=== PATIENT | male | born 1965 | race Caucasian/White ===

== ENCOUNTER 2017-11-16 05:22 | Day surgery (SDC) | payer OTHER ==
[2017-11-10 14:09] LABS: BASOPHILS # (AUTO) 0.1 X10'3 (0-0.2); BASOPHILS % (AUTO) 1.2 % (0-1); EOSINOPHILS # (AUTO) 0.4 X10'3 (0-0.9); LYMPHOCYTES # (AUTO) 2.6 X10'3 (1.1-4.8); MEAN CORPUSCULAR HEMOGLOBIN 32.7 PG (27.0-31.0); MEAN CORPUSCULAR HGB CONC 34.4 % (33.0-36.5); MEAN PLATELET VOLUME 8.2 FL (7.4-10.4); MONOCYTES # (AUTO) 0.7 X10'3 (0-0.9); MONOCYTES % (AUTO) 6.6 % (2-12); NEUTROPHILS % (AUTO) 64.2 % (42-75); PRE OP HEMATOCRIT 54.6 % (42.0-52.0); PRE OP PLATELET COUNT 266 X10'3 (140-440); RED BLOOD COUNT 5.75 X10'6 (4.70-6.10)
[2017-11-10 14:10] LABS: PRE OP HEMOGLOBIN 18.8 g/dL (14.0-17.9)
[2017-11-10 14:24] LABS: ALBUMIN 3.8 G/DL (3.4-5.0); ALBUMIN/GLOBULIN RATIO 1.1 (1.1-1.5); ALKALINE PHOSPHATASE 76 IU/L (46-116); BLOOD UREA NITROGEN 11 MG/DL (7-18); BUN/CREATININE RATIO 12.2 (5.4-32.0); CHLORIDE 102 MMOL/L (99-107); PRE OP ALT 49 U/L (30-65); PRE OP ANION GAP 8 (8-16); PRE OP AST 23 U/L (10-37); PRE OP BILIRUB, TOTAL 0.5 MG/DL (0.0-1.0); PRE OP GLUCOSE 93 MG/DL (70-104); PRE OP POTASSIUM 3.9 MMOL/L (3.4-5.1); PRE OP SODIUM 138 MMOL/L (135-145); TOTAL CARBON DIOXIDE 27.6 MMOL/L (24-32); TOTAL PROTEIN 7.2 G/DL (6.4-8.2); eGFR 89 ML/MIN
[2017-11-16] VITALS (8 sets, daily range): BP systolic 132–149; BP diastolic 86–108
[~2017-11-16] VITALS: Ht 177.8 cm; Wt 132.0 kg
[~2017-11-16 05:22] MED LIST: LISI-604 PO
[2017-11-16] MEDS ORDERED: famotidine 20mg tablet PO ONE (06:04)
[2017-11-16] MEDS ORDERED: Cefazolin 2GM/50ML dext iso,osmotic IVPB IV ONE (06:05)
[2017-11-16] MEDS ORDERED: ringers solution, lacted 1,000 ML IV SCH ×2 (06:05→08:28)
[2017-11-16] MEDS ORDERED: LIDOcaine 1% (10mg/ml) 2ml vial ONE (06:19)
[2017-11-16] MEDS ORDERED: albuterol 2.5 MG/3 ML nebule NEB ONE (06:30)
[2017-11-16] MEDS ORDERED: ketorolac trometh. 30mg/ml inj. ONE ×2 (06:50→08:34)
[2017-11-16] MEDS ORDERED: LIDOcaine 1% 30ml preserv. free vial ONE (06:50)
[2017-11-16] MEDS ORDERED: LIDOcaine 1%/PF 5ML 10 MG/ML VIAL ONE (06:50)
[2017-11-16] MEDS ORDERED: ROPIVAcaine 0.5% (5mg/ml) 30ml vial ONE (06:50)
[2017-11-16] MEDS ORDERED: BUPIVAcaine/PF 2.5mg/ml (0.25%) 10ml vial ONE (06:51)
[2017-11-16] MEDS ORDERED: sevoflurane 250ml liquid IH ONE (07:40)
[2017-11-16] MEDS ORDERED: fentaNYL/PF 50MCG/1 ML 2ML syringe ONE ×2 (07:50→08:00)
[2017-11-16] MEDS ORDERED: midazolam 2 mg/2 ml injection ONE (07:51)
[2017-11-16] MEDS ORDERED: LIDOcaine 2% (20mg/ml) 5ml vial ONE (07:52)
[2017-11-16] MEDS ORDERED: propofol inj 20 ML IV ONE ×2 (07:52→08:34)
[2017-11-16] MEDS ORDERED: proCHLORperazine 10 MG/2 ml inj IV PRN (08:30)
[2017-11-16] MEDS ORDERED: morphine 4 MG/ML inj SYRINge IV PRN ×2 (08:30)
[2017-11-16] MEDS ORDERED: meperidine/PF 25mg/ml syringe IV PRN ×3 (08:30)
[2017-11-16] MEDS ORDERED: ondansetron/PF 4mg/2ml inj IV PRN (08:30)
[2017-11-16] MEDS ORDERED: HYDROcodone/acetaminophen 10/325mg tab PO PRN (08:40)
[2017-11-16] MEDS ORDERED: acetaminophen 1,000mg/100ml IV 100 ML IV SCH (14:00)
== END 2017-11-16 09:57 | disposition home or self-care (01) ==
LOC: PAS 05:22
PROVIDERS: ATTEND Orthopaedic Surgery
DX: M23.222 Derangement of posterior horn of medial meniscus due to old tear or injury, left knee (principal); M17.12 Unilateral primary osteoarthritis, left knee; G89.29 Other chronic pain; I10 Essential (primary) hypertension; M22.42 Chondromalacia patellae, left knee; F17.210 Nicotine dependence, cigarettes, uncomplicated; G47.33 Obstructive sleep apnea (adult) (pediatric); E66.01 Morbid (severe) obesity due to excess calories; Z79.891 Long term (current) use of opiate analgesic; Z79.82 Long term (current) use of aspirin; Z90.49 Acquired absence of other specified parts of digestive tract; Z93.3 Colostomy status; Z85.038 Personal history of other malignant neoplasm of large intestine; Z68.41 Body mass index [BMI] 40.0-44.9, adult; Z72.89 Other problems related to lifestyle; Z98.52 Vasectomy status; Z85.51 Personal history of malignant neoplasm of bladder; Z92.21 Personal history of antineoplastic chemotherapy; Z79.899 Other long term (current) drug therapy; Z98.890 Other specified postprocedural states; Z80.1 Family history of malignant neoplasm of trachea, bronchus and lung; Z83.6 Family history of other diseases of the respiratory system
CPT/HCPCS: 29881; 36415; 80053; 85025; 93005; 94640; 94760; A6449; J0690; J1885; J2001; J2250; J2704; J2795; J3010; J3490; J7030; J7120; A7000